=== PATIENT | male | born 1970 | race Caucasian/White ===

== ENCOUNTER 2017-10-07 09:56 | Day surgery (SDC) | payer BC ==
[2017-10-05 17:26] VITALS: BMI 30.8
[2017-10-07] MEDS ORDERED: BUPIVACAINE HCL/EPINEPHRINE/PF 30 ML VIAL IJ ONE (11:48)
[2017-10-07] MEDS ORDERED: MIDAZOLAM HCL 2 MG/2 ML SINGLE DOSE VIAL ONE (12:00)
[2017-10-07] MEDS ORDERED: DEXAMETHASONE SOD PHOSPHATE 4 MG/1 ML VIAL ONE (12:07)
[2017-10-07] MEDS ORDERED: ceFAZolin SODIUM 1 GM VIAL ONE (12:07)
[2017-10-07] MEDS ORDERED: ONDANSETRON 4 MG/2 ML VIAL ONE (12:07)
[2017-10-07] MEDS ORDERED: SUCCINYLCHOLINE CHLORIDE 200 MG/10 ML VIAL ONE (12:07)
[2017-10-07] MEDS ORDERED: PROPOFOL 20 ML ONE ×2 (12:07→12:50)
[2017-10-07] MEDS ORDERED: BUPIVACAINE HCL/PF 2.5 MG/ML - 30 ML VIAL IJ ONE (12:25)
[2017-10-07] MEDS ORDERED: ONDANSETRON 4 MG/2 ML VIAL IVPUSH PRN (13:38)
[2017-10-07] MEDS ORDERED: oxyCODONE HCL 5 MG TABLET PO PRN (13:38)
[2017-10-07] MEDS ORDERED: LACTATED RINGERS SOLUTION 1,000 ML IV SCH (13:45)
[2017-10-07] MEDS ORDERED: oxyCODONE HCL 5 MG TABLET ONE (15:51)
[2017-10-07 16:01] VITALS: TEMP 98.6
[2017-10-07 17:00] VITALS: BP 131/70; PULSE 52
--- NOTE | 2017-10-10 17:33 | OP ---
DATE OF OPERATION: 10/07/2017 LOCATION: [facility]. SURGEON: Gibson Braswell MD SMT MACHINE OPERATOR: WARREN Zarco PREOPERATIVE DIAGNOSIS: Right biceps tendon distal avulsion. POSTOPERATIVE DIAGNOSIS: Right biceps tendon distal avulsion. PROCEDURE: Reinsertion of right distal biceps tendon. FINDINGS: Avulsed biceps tendon with complete avulsion and retraction to top of the elbow joint. PROCEDURE: Informed consent was obtained, patient taken to the operating room, where the right upper extremity was prepped and draped in sterile fashion. Tourniquet was placed on the upper arm and inflated to 250 mmHg. A horizontal incision was made 2 cm distal to the elbow crease. This was taken down and fascia was released, paying careful attention to avoid neurovascular structures. Biceps tendon was identified and debrided of scar tissue, particularly at the insertion site, with thickened scar area creating a contoured . The proximal portion of the radius was then cleared of soft tissue and the radial tuberosity was identified. Two number 2 FiberWire interlocking sutures were placed into the biceps tendon and securing it to the interlock toggle device. This was done with number 2 FiberWire. The radial neck and tuberosity was exposed. A guidewire was placed through the anterior to posterior portals. This was followed by an 8.5-mm reamer through the anterior cortex and then followed by a 4.5-mm reamer through the posterior cortex. ToggleLoc was then placed through the posterior portal, turned 90 degrees and locked into position. It was then tightened, bringing the biceps stump into the bone tunnel. This was secured by tying the suture. The wound was irrigated with copious amounts of irrigation. Tourniquet was released. There was no active bleeding. Layered closure of 2-0 Vicryl and 3-0 Prolene was performed. Sterile dressing was placed. The patient was transferred to the recovery room without complication. GIBSON BRASWELL M.D. [id number]
--- NOTE | 2017-10-12 18:17 | PATH ---
Surgical Pathology Report Patient Name: CLAIRE JAMES Med. Rec. #: [id number] /Age/Gender: 1970 (Age: 46) / M Account: [id number] Location: [facility] Taken: 10/07/2017 Received: 10/07/2017 Reported: 10/12/2017 Physicians: Wang Fabian M.D. Specimen(s) Received RUPTURED BICEPS TENDON RIGHT Clinical History Ruptured biceps tendon right Final Diagnosis RUPTURED BICEPS TENDON, RIGHT, BIOPSY: FRAGMENTS OF SYNOVIAL TISSUE AND FIBROCONNECTIVE TISSUE SHOWING VASCULAR PROLIFERATION, FOCAL RECENT HEMORRHAGE, FIBRINOUS EXUDATE, AND REGENERATIVE CHANGE. Electronically Signed Glynn Gann M.D. Gross Description Received in formalin labeled "ruptured biceps tendon right," is a 4.0 x 2.8 x 0.8 cm aggregate of fibrous tissue and adipose tissue, consistent with portions of a tendon. Milking System Installer sections are submitted in one cassette. /10/11/2017 saudi10/11/2017
== END 2017-10-07 16:35 | disposition home or self-care (01) ==
LOC: FASU 09:56
PROVIDERS: ATTEND Orthopaedic Surgery
PROC: 0LM30ZZ Reattachment of Right Upper Arm Tendon, Open Approach (ICD-10-PCS; principal; 2017-10-07 12:36)
DX: M66.821 Spontaneous rupture of other tendons, right upper arm (principal)
CPT/HCPCS: 88304-TC; 94760